=== PATIENT | male | born 1960 | race Caucasian/White ===

== ENCOUNTER 2024-07-10 14:36 | Emergency (ER) | payer OTHER, SELFPAY ==
[2024-07-10 14:46] VITALS: BP 110/77
[2024-07-10 15:11] VITALS: BMI 31.4
--- NOTE | 2024-07-10 16:05 | ED.GENMED ---
History of Present Illness
General
Chief Complaint: Skin Surface Trauma
Source: patient
Exam Limitations: none
Time Seen by Provider: 07/10/24 15:23
Nursing documentation reviewed up to this point in time: agreed with
History of Present Illness
History of Present Illness:
63 y/o M
hld, niddm
colectomy
ulcerative colitis
R pinky finger laceration by accident at home today
oozing bleeding but controlled at home
no numbness/tingling/weakness
Past History
Past History
ED Past Medical History: Other (ulcerative colitis)
ED Past Surgical History: Bowel resection
Social History
Tobacco: Non-smoker
Personal:
Living: with family
Employment: Employed
Review of Systems
Review of Systems
Allergies reviewed?: Yes
All Other Systems: Not applicable
Phy Exam
Physical Exam
Physical Exam:
GENERAL: Alert , in no apparent distress, comfortable at rest
HEAD: NCAT
CV: cap refill intact to R 5th finger, radial and ular pulse intact
NEUROLOGICAL: Alert and oriented, no focal neuro deficits, , 5/5 strength, sensation intact,
SKIN: Warm and dry, irregualr shaped laceration 1.5 cm to R pinky finger
MUSCULOSKELETAL:finger laceration to R 5th finger
ful ROm
snesation itnact
PSYCH: Normal and appropriate interaction.
Course
Orders/Labs/Results
Orders:
Orders
07/10/24 16:05
Tetanus/Diphth/Acelpertussis [Adacel] 0.5 ml IM .ONCE ONE
Vital Signs
Initial and Last Documented VS:
Initial Vital Signs
Temp Pulse Resp BP Pulse Ox
36.6 C 100 17 110/77 97
07/10/24 14:46 07/10/24 14:46 07/10/24 14:46 07/10/24 14:46 07/10/24 14:46
Last Documented Vital Signs
Temp Pulse Resp BP Pulse Ox
36.6 C 100 17 110/77 97
07/10/24 14:46 07/10/24 14:46 07/10/24 14:46 07/10/24 14:46 07/10/24 14:46
Procedures
Laceration Closure
Right Fifth Finger(s):
Status of Wound: clean
Size of Wound in cm: 1
Description of Wound Edges: sharp and flap-well vascularized
Preparation: cleaned with saline
Anesthesia: 1% Lidocaine
Revision/Debridement: routine- no revision
Type of Closure: single layer closure
Skin Closure Material: 5-0 nylon
Number of sutures: 4
MDM/Problems Addressed
Differential Diagnosis Includes:
laceration, avulsikon
MDM/Problems Addressed:
63 y/o M
laceratino to R 5th finger from working at home today
wound irrigauted and repaired with sturues
bleeding controlled
wound care
*Critical Care Note
Total Time (30-74mins, 75-104mins- exclusive of procedures): Not Applicable
ED Attending Note
-
Portions of this chart may have been created with voice recognition software.� Occasional wrong word or��sound alike� substitutions may have occurred due to the inherent limitations of voice recognition software.
Discharge Plan
Departure
Patient Disposition: Home (Routine Discharge)
Date of Disposition: 07/10/24
Time of Disposition: 16:53
Patient with high blood pressure during this ER visit?: No
Condition: Fair
Discharge Problem:
Laceration of finger
Instructions: Laceration Repair With Stitches (DC), BLOOD PRESSURE
Prescriptions:
No Action
quetiapine 25 MG tablet
25 mg PO HS
Simvastatin
1 tab PO QPM
metformin 500 MG tablet
500 mg PO BID
alprazolam 0.5 MG tablet
0.5 mg PO TIDPRN PRN (Reason: anxiety)
duloxetine 20 MG capsule,delayed release(DR/EC)
20 mg PO DAILY
Glimepiride
1 tab PO DAILY
Lamictal:
1 tab PO QPM
Referrals:
Violeta Lepe PA-C [Family Provider] - Follow up in 10 days
Activity Restrictions/Additional Instructions:
KEEP THE WOUND CLEAN AND DRY FOR 24 HOURS
AFTER THAT YOU CAN GET IT WET IN THE BATH/SHOWER ONCE A DAY AND MAKE SURE IT IS CLEAN AND THERE IS NO DRIED BLOOD ON THE STITCHES
APPLY NEOSPORIN AND A BANDAID
THE STITCHES NEED TO BE REMOVED IN ABOUT 7-10 DAYS, SEE YOUR DOCTOR FOR THIS.
THE LAST DAY BEFORE STITCHES OUT, NO OINTMENT, LEAVE OPEN TO AIR
WATCH FOR SIGNS OF INFECTION AND RETURN NEEDED FOR PAIN, SWELLING, REDNESS, DRAINAGE, BLEEDING.
TYLENOL NEEDED FOR PAIN.
Interventions
Interventions:
*Risk Screen - Suicide Last Done: 07/10/24 14:47
*General Assessment Last Done: 07/10/24 14:47
*Neglect/Abuse Screening Last Done: 07/10/24 14:47
*ED- Fall Risk Assessment Last Done: 07/10/24 15:32
*ED COVID-19 Vaccine History Last Done: 07/10/24 14:47
*Nursing Disposition Last Done: 07/10/24 16:54
ED-Skin Assessment Last Done: 07/10/24 15:10
Discharge Date and Time
Discharge Date/Time: 07/10/24 16:56
Print Language: GREENLANDIC
[2024-07-10] MEDS: ADACEL 0.5 ML IM (16:13)
== END 2024-07-10 16:56 | disposition home or self-care (01) ==
LOC: EMR 14:36
PROVIDERS: EMERGENCY PHYSICIAN Emergency Medicine; FAMILY PHYSICIAN Physician Assistant Medical
DX: S61.216A Laceration without foreign body of right little finger without damage to nail, initial encounter (principal); X58.XXXA Exposure to other specified factors, initial encounter; Z23 Encounter for immunization
CPT/HCPCS: 12001; 90471; 99282; 90715

== ENCOUNTER 2024-10-03 20:53 | Emergency (ER) | payer OTHER, SELFPAY ==
[2024-10-03 20:55] VITALS: BP 129/88
[2024-10-03 21:53] VITALS: BMI 31.3
--- NOTE | 2024-10-03 22:39 | ED.SKININJ ---
HPI-Injury
General
Chief Complaint: Skin Surface Trauma
Time Seen by Provider: 10/03/24 22:16
History of Present Illness-Injury
Initial Injury comments:
Patient presents to the emergency department with laceration to his left fourth digit with folding knife. States he accidentally folded onto his finger. Denies numbness or tingling. Last tetanus vaccination was in June.
Past History
Past History
ED Past Medical History: Other (ulcerative colitis)
ED Past Surgical History: Bowel resection
Social History
Tobacco: Non-smoker
Personal:
Living: with family
Employment: Employed
Phy Exam
Physical Exam
Physical Exam:
General: No acute distress
Head: NCAT
Neck, Normal in appearance, no swelling
Respiratory: No Respiratory distress
Abdomen: No distension
Ext: no edema
Neuro: SIDDIQUI, AOx4
Psych: Normal affect
Skin: 4 cm hook shaped laceration to radial surface of fourth digit. Cap refill intact. Sensation intact. Able to fully range digit at all joints. 5 out of 5 strength throughout
Course
Vital Signs
Initial and Last Documented VS:
Initial Vital Signs
Temp Pulse Resp BP Pulse Ox
98.0 F 92 20 129/88 96
10/03/24 20:55 10/03/24 20:55 10/03/24 20:55 10/03/24 20:55 10/03/24 20:55
Last Documented Vital Signs
Temp Pulse Resp BP Pulse Ox
98.0 F 92 20 129/88 96
10/03/24 20:55 10/03/24 20:55 10/03/24 20:55 10/03/24 20:55 10/03/24 22:41
Procedures
Laceration Closure
Left Fourth Finger:
Status of Wound: clean
Size of Wound in cm: 4
Preparation: cleaned with saline
Anesthesia: 1% Lidocaine (Digital block, 3 cc)
Type of Closure: single layer closure
Skin Closure Material: 4-0 nylon (4)
Number of sutures: 4
*Pulse Oximetry
SaO2: 96
Oxygen Mode of Delivery: Room air
Patient hypoxic: no
*Critical Care Note
Total Time (30-74mins, 75-104mins- exclusive of procedures): Not Applicable
ED Attending Note
ED Attending Note
ED Attending Note:
Skin laceration noted. Cleaned wound. Up-to-date on tetanus. Repaired with suture. No evidence of neurovascular or tendon injury.
-
Portions of this chart may have been created with voice recognition software.� Occasional wrong word or��sound alike� substitutions may have occurred due to the inherent limitations of voice recognition software.
Discharge Plan
Departure
Patient Disposition: Home (Routine Discharge)
Date of Disposition: 10/03/24
Time of Disposition: 22:41
Patient with high blood pressure during this ER visit?: No
Discharge Problem:
Laceration of finger
Instructions: Laceration Repair With Stitches (DC)
Prescriptions:
No Action
quetiapine 25 MG tablet
25 mg PO HS
Simvastatin
1 tab PO QPM
metformin 500 MG tablet
500 mg PO BID
alprazolam 0.5 MG tablet
0.5 mg PO TIDPRN PRN (Reason: anxiety)
duloxetine 20 MG capsule,delayed release(DR/EC)
20 mg PO DAILY
Glimepiride
1 tab PO DAILY
Lamictal:
1 tab PO QPM
Referrals:
Violeta Lepe PA-C [Family Provider, Family Practice]
Activity Restrictions/Additional Instructions:
Please have sutures removed in 10 days. Return to the ER with signs of infection including redness, pus, fevers or chills.
Interventions
Interventions:
*Risk Screen - Suicide Last Done: 10/03/24 21:50
*General Assessment Last Done: 10/03/24 20:55
*Neglect/Abuse Screening Last Done: 10/03/24 21:50
*ED- Fall Risk Assessment Last Done: 10/03/24 21:50
*ED COVID-19 Vaccine History Last Done: 10/03/24 21:50
*Nursing Disposition Last Done: 10/03/24 22:56
ED-Skin Assessment Last Done: 10/03/24 21:51
Discharge Date and Time
Discharge Date/Time: 10/03/24 22:56
Print Language: CYPRIOT
== END 2024-10-03 22:56 | disposition home or self-care (01) ==
LOC: EMR 20:53
PROVIDERS: EMERGENCY PHYSICIAN Emergency Medicine; FAMILY PHYSICIAN Physician Assistant Medical
DX: S61.215A Laceration without foreign body of left ring finger without damage to nail, initial encounter (principal); W26.0XXA Contact with knife, initial encounter
CPT/HCPCS: 12002; 99282